=== PATIENT | female | born 1975 | race Hispanic/Latino ===

== ENCOUNTER 2016-12-11 10:18 | Emergency (ER) | payer SELFPAY ==
[~2016-12-11] VITALS: Ht 152.4 cm; Wt 72.7 kg
[2016-12-11 10:27] VITALS: BP 147/99; PULSE 105; RESP 20
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
[2016-12-11] MEDS ORDERED: TdaP Vaccine 0.5 mL Inj IM ONE (10:55)
[2016-12-11 11:40] VITALS: BP 127/86; PULSE 81; RESP 16; O2SAT 100
[2016-12-11] MEDS ORDERED: HYDROcodone-APAP 10-325 mg PO ONE (11:45)
== END 2016-12-11 11:48 | disposition home or self-care (01) ==
LOC: SED 10:18
DX: T23.111A Burn of first degree of right thumb (nail), initial encounter (principal); T23.121A Burn of first degree of single right finger (nail) except thumb, initial encounter; T31.0 Burns involving less than 10% of body surface; X10.2XXA Contact with fats and cooking oils, initial encounter; Y93.G3 Activity, cooking and baking; Y92.89 Other specified places as the place of occurrence of the external cause; Y99.8 Other external cause status; Z23 Encounter for immunization